=== PATIENT | male | born 1990 | race Caucasian/White ===

== ENCOUNTER 2017-04-16 14:14 | Emergency (ER) | payer OTHER ==
[2017-04-16 14:38] VITALS: BP 130/55; PULSE 80; RESP 16; TEMP 97; O2SAT 100
--- NOTE | 2017-04-16 17:27 | US ---
HISTORY: Left testicular pain TECHNIQUE: Realtime sonography through the scrotum with color and doppler flow. COMPARISON: None available. FINDINGS: RIGHT TESTICLE: Measures 4.4 x 2.2 x 3.1 cm. Homogeneous echotexture. Blood flow is demonstrated. RIGHT EPIDIDYMIS: Grossly unremarkable. LEFT TESTICLE: Measures 3.7 x 1.9 x 3.2 cm. Homogeneous echotexture. Blood flow is demonstrated. LEFT EPIDIDYMIS: Grossly unremarkable. HYDROCELE: None. VARICOCELE: Small left-sided varicocele. OTHER FINDINGS: None. IMPRESSION: Small left sided varicocele.
--- NOTE | 2017-04-16 17:50 | ED PDOC ---
HPI: Male Pain Time Seen by Provider: 04/16/17 14:43 Chief Complaint (Nursing): Male Genitourinary Chief Complaint (Provider): Left testicular pain x 3 weeks History Per: Patient History/Exam Limitations: no limitations Onset/Duration Of Symptoms: Days Current Symptoms Are (Timing): Still Present Severity: Moderate Pain Scale Rating Of: 5 Quality Of Discomfort: Dull, Pressure Associated Symptoms: denies: Fever, Chills, Nausea, Vomiting, Diarrhea, Loss Of Appetite, Back Pain, Chest Pain, Constipation, Urinary Symptoms Alleviating Factors: None Additional Complaint(s): Pt states he is sexually active without protection. No testicular injury. Denies fever/chills. STates pain was not acute onset but not it is hurting when he walks which prompted his visit. Pt has not been seen in the past for this. Past Medical History Reviewed: Historical Data, Nursing Documentation, Vital Signs Vital Signs: Last Vital Signs Temp 97 F L 04/16/17 14:36 Pulse 80 04/16/17 14:36 Resp 16 04/16/17 14:36 BP 130/55 L 04/16/17 14:36 Pulse Ox 100 04/16/17 14:36 - Medical History PMH: Gastritis Denies: Chronic Kidney Disease - Surgical History Surgical History: No Surg Hx - Family History Family History: States: Unknown Family Hx - Living Arrangements Living Arrangements: With Family - Social History Current smoker - smoking cessation education provided: No Alcohol: Occasional Drugs: Denies - Immunization History Hx Tetanus Toxoid Vaccination: No - Home Medications Home Medications: Ambulatory Orders Medication Instructions Recorded Robitussin 03/02/16 Benzonatate [Tessalon Perles] 200 mg PO TID PRN #25 sgl 11/25/16 Ibuprofen [Motrin] 600 mg PO TID #21 tab 11/25/16 predniSONE [Prednisone] 10 mg PO BID #10 tab 11/25/16 - Allergies Allergies/Adverse Reactions: Allergies Allergy/AdvReac Type Severity Reaction Status Date / Time No Known Allergies Allergy Verified 04/16/17 14:36 Review of Systems ROS Statement: Except As Marked, All Systems Reviewed And Found Negative Genitourinary Male: Positive for: Other (Testicular pain ) Physical Exam - Reviewed Nursing Documentation Reviewed: Yes Vital Signs Reviewed: Yes - Physical Exam Appears: Positive for: Well, Non-toxic, No Acute Distress Head Exam: Positive for: ATRAUMATIC, NORMAL INSPECTION, NORMOCEPHALIC Skin: Positive for: Normal Color, Warm, DRY Eye Exam: Positive for: Normal appearance ENT: Positive for: Normal ENT Inspection Neck: Positive for: Normal, Painless ROM Cardiovascular/Chest: Positive for: Regular Rate, Rhythm Respiratory: Positive for: Normal Breath Sounds. Negative for: Accessory Muscle Use, Respiratory Distress Gastrointestinal/Abdominal: Positive for: Normal Exam, Bowel Sounds, Soft. Negative for: Tenderness Male Genital Exam: Positive for: normal genitalia, no hernia, epididymal tenderness, testicular tenderness (L). Negative for: bleeding, scrotum tenderness (L) Back: Positive for: Normal Inspection Extremity: Positive for: Normal ROM Neurologic/Psych: Positive for: Alert, Oriented - ECG O2 Sat by Pulse Oximetry: 100 Pulse Ox Interpretation: Normal Disposition - Clinical Impression Clinical Impression: Varicocele - Patient ED Disposition Is Patient to be Admitted: No Counseled Patient/Family Regarding: Diagnosis, Need For Followup - Disposition Referrals: Bess De La Vega MD [Medical Doctor] - Disposition: Routine/Home Disposition Time: 17:50 Condition: GOOD Additional Instructions: Follow-up with urology. Instructions: Varicocele (ED)
== END 2017-04-16 18:01 | disposition home or self-care (01) ==
LOC: H.ER 14:14
DX: I86.1 Scrotal varices (principal)